=== PATIENT | female | born 1995 | race Caucasian/White ===

== ENCOUNTER → 2018-08-23 | Outpatient (CLI) | payer OTHER ==
[~2018-08-23] MED LIST: AZIT250 PO; CEPH500 PO; ESCI10 PO; IBUP400 PO; IBUP800 PO; NP THYROID30 MG PO; OXYACE5T PO; Verotin-Gr Cap1 EACH PO; Vitamin B-1250 MCG PO; [UNRECOGNIZED DRUG - OTHER]
== END | disposition home or self-care (01) ==
LOC: LAB SHORT 17:21 → LAB 17:21
PROVIDERS: Obstetrics & Gynecology
DX: Z01.419 Encounter for gynecological examination (general) (routine) without abnormal findings (principal)
CPT/HCPCS: G0123

== ENCOUNTER 2018-08-29 17:50 | Emergency (ER) | payer OTHER ==
[~2018-08-29] VITALS: Ht 167.6 cm; Wt 57.6 kg
[~2018-08-29 17:50] MED LIST changes: -NP THYROID30 MG PO
[2018-08-29] MEDS ORDERED: NP THYROID30 MG PO (18:07)
[2018-08-29 19:00] LABS: Calcium, Ionized (POC) 1.16 mmol/L (1.10-1.46); Chloride (POC) 105 mmol/L (98-108); Creatinine (POC) 0.7 mg/dL (0.6-1.0); Glucose (ISTAT POC) 98 mg/dL (70-99); Hemoglobin (POC) 13.9 g/dL (12.0-16.0); Potassium (POC) 3.5 mmol/L (3.5-5.5); Sodium (POC) 144 mmol/L (135-148); Total CO2 (POC) 23 mmol/L (21-32)
== END 2018-08-29 19:08 | disposition home or self-care (01) ==
LOC: ER 17:50
PROVIDERS: Physician Assistant
DX: F41.9 Anxiety disorder, unspecified (principal); Z88.0 Allergy status to penicillin; Z79.899 Other long term (current) drug therapy; E03.9 Hypothyroidism, unspecified; Z87.891 Personal history of nicotine dependence
CPT/HCPCS: 80047; 85014; 99283

== ENCOUNTER 2019-01-31 16:16 | Emergency (ER) | payer OTHER ==
[~2019-01-31] VITALS: Ht 167.6 cm; Wt 61.2 kg
[~2019-01-31 16:16] MED LIST changes: +NP THYROID30 MG PO
[2019-01-31 17:06] LABS: Source, Urine Clean Catch
[2019-01-31 17:08] LABS: BASOPHILS ABSOLUTE AUTO 0.02 K/mm3 (0.00-0.23); BASOPHILS PERCENT AUTO 0 % (0-2); EOSINOPHILS ABSOLUTE AUTO 0.09 K/mm3 (0.00-0.68); EOSINOPHILS PERCENT AUTO 2 % (0-6); Hematocrit 43.1 % (33.0-51.0); Hemoglobin 14.6 g/dL (11.5-16.0); IMMATURE GRAN ABSOLUTE AUTO 0.02 K/mm3 (0.00-0.10); IMMATURE GRAN PERCENT AUTO 0 % (0-1); LYMPHOCYTES ABSOLUTE AUTO 2.09 K/mm3 (0.84-5.20); LYMPHOCYTES PERCENT AUTO 37 % (21-46); MONOCYTES ABSOLUTE AUTO 0.34 K/mm3 (0.16-1.47); MONOCYTES PERCENT AUTO 6 % (4-13); Mean Corpuscular HGB 29.7 pg (26.0-34.0); Mean Corpuscular HGB Conc 33.9 g/dL (31.5-36.5); Mean Corpuscular Volume 88 fL (80-100); Mean Platelet Volume 10.9 fL (9.1-12.4); NEUTROPHILS ABSOLUTE AUTO 3.13 K/mm3 (1.96-9.15); NEUTROPHILS PERCENT AUTO 55 % (41-73); Platelet Count 205 K/mm3 (150-400); RDW Coefficient Variation 11.4 % (11.7-14.2); RDW Standard Deviation 36.9 fL (35.1-46.3); Red Blood Cell Count 4.92 M/mm3 (3.80-5.20); White Blood Cell Count 5.69 K/mm3 (4.00-11.30)
[2019-01-31 17:11] LABS: Bilirubin, Urine Neg (Neg); Blood, Urine Neg (Neg); Glucose Qualitative, Urine Neg (Neg); Ketones, Urine Neg (Neg); Leukocyte Esterase, Urine Neg (Neg); Nitrite, Urine Neg (Neg); Protein, Urine Neg (Neg); Urobilinogen, Urine NORM (Normal)
[2019-01-31 17:19] LABS: Appearance, Urine Clear (Clear); Color, Urine Yellow (P-Yellow)
[2019-01-31 17:28] LABS: Alanine Aminotransfer (ALT/SGP 27 U/L (12-78); Albumin, Blood 4.3 g/dL (3.4-5.0); Albumin/Globulin Ratio 1.2 (0.8-1.8); Alk Phos 81 U/L (50-136); Anion Gap 4 mmol/L (6-16); Aspartate Aminotrans (AST/SGOT 12 U/L (12-37); Bilirubin, Total 0.4 mg/dL (0.1-1.0); Blood Urea Nitrogen 13 mg/dL (8-24); Bun/Creatinine Ratio 19.1 (12.0-20.0); CO2, Blood 27 mmol/L (21-32); Calcium, Blood 8.9 mg/dL (8.5-10.1); Chloride, Blood 111 mmol/L (98-108); Creatinine, Blood 0.68 mg/dL (0.40-1.00); Globulin, Blood 3.5 g/dL (2.2-4.0); Glomerular Filtration Rate >60 (60-); Glucose, Blood 113 mg/dL (70-99); Potassium, Blood 3.6 mmol/L (3.5-5.5); Sodium, Blood 142 mmol/L (136-145); Total Protein, Blood 7.8 g/dL (6.4-8.2)
[2019-01-31] MEDS ORDERED: Motion Sickness25 M1 PO (18:21)
== END 2019-01-31 18:54 | disposition home or self-care (01) ==
LOC: ER 16:16
PROVIDERS: Physician Assistant
DX: R42 Dizziness and giddiness (principal); R00.2 Palpitations; E03.9 Hypothyroidism, unspecified; Z87.891 Personal history of nicotine dependence; Z79.899 Other long term (current) drug therapy; Z88.0 Allergy status to penicillin
CPT/HCPCS: 36415; 80053; 81003; 81025; 85025; 93005; 93010; 96361; 96374; 99284-25; J2405; J7030

== ENCOUNTER 2020-04-02 17:31 | Emergency (ER) | payer OTHER ==
[~2020-04-02] VITALS: Ht 167.6 cm; Wt 65.8 kg
[~2020-04-02 17:31] MED LIST changes: +Motion Sickness25 M1 PO
[2020-04-02] MEDS ORDERED: AMPDEX30CR (17:53)
[2020-04-02] MEDS ORDERED: VENL37.5 PO (17:54)
[2020-04-02] MEDS ORDERED: METO25ER PO (17:54)
[2020-04-02] MEDS ORDERED: CENTRUM SILVER1 EAC2 PO (17:55)
[2020-04-02] MEDS ORDERED: ALPR.5 PO (17:56)
[2020-04-02] MEDS ORDERED: CYCL10 PO (20:12)
== END 2020-04-02 20:44 | disposition home or self-care (01) ==
LOC: ER 17:31
DX: S16.1XXA Strain of muscle, fascia and tendon at neck level, initial encounter (principal); S29.012A Strain of muscle and tendon of back wall of thorax, initial encounter; S09.90XA Unspecified injury of head, initial encounter; E03.9 Hypothyroidism, unspecified; Z88.0 Allergy status to penicillin; Z79.899 Other long term (current) drug therapy; Z87.891 Personal history of nicotine dependence; V43.52XA Car driver injured in collision with other type car in traffic accident, initial encounter; Y92.410 Unspecified street and highway as the place of occurrence of the external cause
CPT/HCPCS: 70450; 72070; 72125; 96374-59; 99285-25; J1885; L0160

== ENCOUNTER 2021-01-25 23:57 | Emergency (ER) | payer OTHER ==
[~2021-01-25] VITALS: Ht 167.6 cm; Wt 60.3 kg
[~2021-01-25 23:57] MED LIST changes: +ALPR.5 PO; +AMPDEX30CR; +CENTRUM SILVER1 EAC2 PO; +CYCL10 PO; +FLUDROCORTISON0.1 MG PO; +LEVSOD25 PO; +METO25ER PO; +QUET25; +VENL37.5 PO
[2021-01-26] MEDS ORDERED: METO25ER PO (02:05)
[2021-01-26 03:37] LABS: Source, Urine Clean Catch
[2021-01-26 03:40] LABS: Bilirubin, Urine Neg (Neg); Blood, Urine Neg (Neg); Glucose Qualitative, Urine Neg (Neg); Ketones, Urine Neg (Neg); Leukocyte Esterase, Urine Neg (Neg); Nitrite, Urine Neg (Neg); Protein, Urine Neg (Neg); Specific Gravity, Urine 1.025 (1.003-1.022); Urobilinogen, Urine 1+ (Normal)
[2021-01-26 03:50] LABS: Appearance, Urine Clear (Clear); Color, Urine Yellow (P-Yellow)
[2021-01-26 04:27] LABS: Candida species (DNA Probe) Negative (NEGATIVE); G. vaginalis (DNA Probe) Negative (NEGATIVE); T. vaginalis (DNA Probe) Negative (NEGATIVE)
[2021-01-28 01:10] LABS: CHLAMYDIA TRACHOMATIS, NAA Negative (Negative)
== END 2021-01-26 04:40 | disposition home or self-care (01) ==
LOC: ER 23:57
PROVIDERS: Emergency Medicine
DX: N94.10 Unspecified dyspareunia (principal); N93.9 Abnormal uterine and vaginal bleeding, unspecified; E03.9 Hypothyroidism, unspecified; Z79.899 Other long term (current) drug therapy
CPT/HCPCS: 81003; 81025; 87480; 87491; 87510; 87591; 87660; 99283

== ENCOUNTER 2022-08-14 14:27 | Observation (INO) | payer OTHER ==
[~2022-08-14] VITALS: Ht 167.6 cm; Wt 62.0 kg
[~2022-08-14 14:27] MED LIST changes: -Budeprion Xl300 MG PO; -Bupropion HCl100 MG PO; -METO25 PO
[2022-08-14] MEDS ORDERED: Bupropion HCl100 MG PO (16:35)
[2022-08-14] MEDS ORDERED: METO25 PO (18:26)
[2022-08-14] MEDS ORDERED: Budeprion Xl300 MG PO (18:27)
[2022-08-14] MEDS ORDERED: ALPR.5 PO (18:29)
--- NOTE | 2022-08-14 20:00 | NUR ---
ADMIT NOTE PATIENT NEW ADMIT TO UNIT FROM ER FOR APPY. ALERT AND ORIENTED AND INDEPENDENT. REPORTS MODERATE ABD PAIN, MILD NAUSEA. MEDICATED FOR PAIN PER EMAR. TOLERATING CLEAR LIQUIDS UNTIL MIDNIGHT, VOIDING WELL. ADMISSION COMPLETE. AND SON PRESENT IN ROOM. PLAN FOR NPO AFTER MIDNIGHT WITH POSSIBLE OR TOMORROW 08/15/22. REPROT GIVEN TO EXCHANGE SPECIALIST RN.
--- NOTE | 2022-08-15 04:21 | NUR ---
SHIFT SUMMARY PATIENT NEW ADMIT FOR ACUTE APPY. AOX4, IND. IN ROOM. VOIDS EASILY, NPO SINCE 0000. MEDICATED AT TIME OF ADMIT WITH TORADOL FOR PAIN AND DENIES NEED FOR FURTHER PAIN MEDICATION. REST COMFORTABLY T/O NIGHT, IV INFUSING FLUIDS AND ABX. SCDS IN PLACE. VSS, CALL LIGHT IN REACH.
[2022-08-15 05:21] LABS: BASOPHILS ABSOLUTE AUTO 0.02 K/mm3 (0.00-0.23); BASOPHILS PERCENT AUTO 1 % (0-2); EOSINOPHILS ABSOLUTE AUTO 0.08 K/mm3 (0.00-0.68); EOSINOPHILS PERCENT AUTO 2 % (0-6); Hematocrit 35.6 % (33.0-51.0); Hemoglobin 12.4 g/dL (11.5-16.0); IMMATURE GRAN ABSOLUTE AUTO 0.01 K/mm3 (0.00-0.10); IMMATURE GRAN PERCENT AUTO 0 % (0-1); LYMPHOCYTES PERCENT AUTO 43 % (21-46); MONOCYTES ABSOLUTE AUTO 0.36 K/mm3 (0.16-1.47); MONOCYTES PERCENT AUTO 9 % (4-13); Mean Corpuscular HGB Conc 34.8 g/dL (31.5-36.5); Mean Corpuscular Volume 86 fL (80-100); Mean Platelet Volume 10.8 fL (9.1-12.4); NEUTROPHILS ABSOLUTE AUTO 1.91 K/mm3 (1.96-9.15); NEUTROPHILS PERCENT AUTO 46 % (41-73); Platelet Count 156 K/mm3 (150-400); RDW Coefficient Variation 11.9 % (11.7-14.2); RDW Standard Deviation 37.3 fL (35.1-46.3); Red Blood Cell Count 4.13 M/mm3 (3.80-5.20); White Blood Cell Count 4.18 K/mm3 (4.00-11.30)
[2022-08-15 05:41] LABS: Albumin, Blood 3.5 g/dL (3.4-5.0); Albumin/Globulin Ratio 1.2 (0.8-1.8); Bilirubin, Total 0.5 mg/dL (0.1-1.0); Bun/Creatinine Ratio 12.7 (12.0-20.0); Calcium, Blood 8.4 mg/dL (8.5-10.1); Creatinine, Blood 0.87 mg/dL (0.40-1.00); Globulin, Blood 2.9 g/dL (2.2-4.0); Potassium, Blood 3.5 mmol/L (3.5-5.5); Total Protein, Blood 6.4 g/dL (6.4-8.2)
--- NOTE | 2022-08-15 12:48 | NUR ---
PT TO PREOP AT APPROXIMATELY 1215
--- NOTE | 2022-08-15 14:46 | NUR ---
08/15/22 1446 Mary Bhatti PT ON SCHEDULED ANTIBIOTICS AND EMPTIED BLADDER PRIOR TO COMING TO OR
--- NOTE | 2022-08-15 16:23 | NUR ---
PT ARRIVED TO UNIT FROM PACU TRANSFERRED [facility] FROM [facility] TO BED. PT REPORTS FEELING ANXIOUS AND FEELS LIKE "HEARTBURN" IN CHEST/THROAT. REPORTS SHOULDERS FEEL ACHEY. BP STABLE BUT HR DIPPING INTO MID 40S. DR BURGOS INTO SEE PT. DISCUSSED. VO GIVEN FOR HOSPITALIST PRN FOR BRADYCARDIA. IV FLUIDS STARTED AND ABX INFUSING PER ORDERS. MEDICATED PER ORDERS FOR 7/10 ABD PAIN WITH TYLENOL. CALL LIGHT IN REACH.
--- NOTE | 2022-08-15 17:18 | NUR ---
SUMMARY POD 0 FOR LAP APPY. LAP INCISIONS CDI W/DERMABOND. PT GUY POST OP WITH HR IN 40S. HOSPITALIST CONSULT OBTAINED AND TELE PLACED PER ORDERS. TELE SINUS GUY AT 46 PER LY. ADMINISTERED TYLENOL PER ORDERS FOR ABDOMINAL PAIN. CALL LIGHT IN REACH. FAMILY AT BEDSIDE.
--- NOTE | 2022-08-16 02:16 | NUR ---
TELE CALLED AT 0211 TO NOTIFY OF SINUS BRADYCARDIA OF 42-43 FROM 0200 AND SUSTAINING. CHECKED ON PATIENT WHO IS SLEEPING AT THIS TIME AND RESP RATE 16, EVEN UNLABORED BREATHING, IN NO APPARENT DISTRESS. WILL CONTINUE TO MONITOR.
--- NOTE | 2022-08-16 04:53 | NUR ---
SHIFT SUMMARY PATIENT POD1 LAP APPY. EATING AND VOIDING WELL. DENIES N/V. PASSING FLATUS. PATIENT HAS HX OF POTS, IS TACHYCARDIC WHEN AMBULATING, HR DROPS INTO LOW 40S PER PILER. DR GUNDERSON NOTIFIED, ORDERS RECIEVED TO BOLUS A LITER OF NS. VITALS MONITORED AND BOLUS INFUSING. PATIENT IS DENYING CHEST PAIN, SOB, LUNG SOUNDS CLEAR. BP 95/53, HR 41 AT START OF BOLUS, REPEAT AFTER 500ML IS 105/67 HR 47. PATIENT IS SLIGHTLY ANXIOUS, HOWEVER ABLE TO DISTRACT AND REASSURE HER. WILL CONTINUE TO MONITOR PATIENT VITALS AND FINISH BOLUS. CALL LIGHT IS IN REACH.
--- NOTE | 2022-08-16 16:31 | NUR ---
DISCHARGE SUMMARY POD1 LAP APPY, A/OX4, VSS THOUGH PT WAS ON TELEMETRY TO MONITOR HER HR IT WAS A LITTLE LOW AT REST AND LOW 100-120'S WHILE AMBULATING, PERFORMED ORTHOSTATIC BP ON HER WHICH WAS NORMAL, PT REPORTING GOOD PAIN MANAGMENT, TOLERATING PO, ABLE TO AMBULATE INDEPENDENTLY, SURGICAL INCISIONS ARE FREE FROM DRAINAGE AND NO REDNESS NOTED X3, ABD SOFT THOUGH TENDER TO PALPATION, PT DENEIS SOB. DISCHARGE INSTRUCTIONS DISCUSSED WITH PT AND HER INCLUDING H OME CARE, MEDICATIONS INCULDING DISCUSSING HER BETA NASH WITH HER PCP PER SURGERY RECOMMENDATION AND NOT TAKING HER XANAX WITH HER NEW OXYCODONE SCRIPT ALSO PER SURGERY, FOLLOW UP APPOINTMENTS AND CONTACT INFORMATION TO SET THAT UP. REMOVED IV ACCESS AND NO OTHER DEVICES IN PLACE, PT ESCORTED OUT VIA WC TO PRIVATE AUTO TO GO HOME.
== END 2022-08-16 15:36 | disposition home or self-care (01) ==
LOC: ER 14:27 → SURS 14:28
PROVIDERS: ADMIT Surgery
PROC: 0DTJ4ZZ Resection of Appendix, Percutaneous Endoscopic Approach (ICD-10-PCS; principal; 2022-08-15 14:00)
DX: K35.80 Unspecified acute appendicitis (principal); R00.1 Bradycardia, unspecified; G90.A Postural orthostatic tachycardia syndrome [POTS]; F90.9 Attention-deficit hyperactivity disorder, unspecified type; F32.A Depression, unspecified; F41.9 Anxiety disorder, unspecified; E03.9 Hypothyroidism, unspecified; Z87.891 Personal history of nicotine dependence; Z88.0 Allergy status to penicillin; Z88.8 Allergy status to other drugs, medicaments and biological substances; Z79.899 Other long term (current) drug therapy
CPT/HCPCS: 36415; 80053; 84703; 85025; 93005; 93010; 96361; 96365; 96366; 96375; 96376; 99284-25; A9270; G0378; J0696; J1100; J1170; J1885; J2250; J2405; J2704; J2795; J3010; J7030; J7120

== ENCOUNTER → 2022-08-14 | Outpatient (CLI) | payer OTHER ==
[~2022-08-14] MED LIST changes: -AMPDEX30CR; +AMPDEX30CR PO; +Budeprion Xl300 MG PO; +Bupropion HCl100 MG PO; +METO25 PO
[2022-08-14 11:13] LABS: BASOPHILS ABSOLUTE AUTO 0.03 K/mm3 (0.00-0.23); BASOPHILS PERCENT AUTO 1 % (0-2); EOSINOPHILS ABSOLUTE AUTO 0.09 K/mm3 (0.00-0.68); EOSINOPHILS PERCENT AUTO 2 % (0-6); Hematocrit 41.3 % (33.0-51.0); Hemoglobin 14.3 g/dL (11.5-16.0); IMMATURE GRAN ABSOLUTE AUTO 0.01 K/mm3 (0.00-0.10); IMMATURE GRAN PERCENT AUTO 0 % (0-1); LYMPHOCYTES ABSOLUTE AUTO 1.89 K/mm3 (0.84-5.20); LYMPHOCYTES PERCENT AUTO 33 % (21-46); MONOCYTES ABSOLUTE AUTO 0.39 K/mm3 (0.16-1.47); MONOCYTES PERCENT AUTO 7 % (4-13); Mean Corpuscular HGB 29.9 pg (26.0-34.0); Mean Corpuscular HGB Conc 34.6 g/dL (31.5-36.5); Mean Corpuscular Volume 86 fL (80-100); Mean Platelet Volume 10.8 fL (9.1-12.4); NEUTROPHILS ABSOLUTE AUTO 3.38 K/mm3 (1.96-9.15); NEUTROPHILS PERCENT AUTO 58 % (41-73); Platelet Count 226 K/mm3 (150-400); RDW Standard Deviation 37.9 fL (35.1-46.3); Red Blood Cell Count 4.78 M/mm3 (3.80-5.20); White Blood Cell Count 5.79 K/mm3 (4.00-11.30)
[2022-08-14 11:24] LABS: Albumin, Blood 4.5 g/dL (3.4-5.0); Albumin/Globulin Ratio 1.2 (0.8-1.8); Bilirubin, Total 0.5 mg/dL (0.1-1.0); Bun/Creatinine Ratio 15.7 (12.0-20.0); Calcium, Blood 9.4 mg/dL (8.5-10.1); Creatinine, Blood 0.83 mg/dL (0.40-1.00); Globulin, Blood 3.8 g/dL (2.2-4.0); Potassium, Blood 3.7 mmol/L (3.5-5.5); Total Protein, Blood 8.3 g/dL (6.4-8.2)
== END | disposition home or self-care (01) ==
LOC: LAB 11:10 → LAB SHORT 11:10
PROVIDERS: Physician Assistant
DX: R10.31 Right lower quadrant pain (principal)
CPT/HCPCS: 80053; 85025

== ENCOUNTER 2024-11-18 18:53 | Emergency (ER) | payer OTHER ==
[~2024-11-18] VITALS: Ht 167.6 cm; Wt 67.1 kg
[~2024-11-18 18:53] MED LIST changes: +Budeprion Xl300 MG PO; +Bupropion HCl100 MG PO; +METO25 PO
[2024-11-18 19:33] LABS: BASOPHILS ABSOLUTE AUTO 0.03 K/mm3 (0.00-0.23); BASOPHILS PERCENT AUTO 0 % (0-2); EOSINOPHILS ABSOLUTE AUTO 0.13 K/mm3 (0.00-0.68); EOSINOPHILS PERCENT AUTO 2 % (0-6); Hematocrit 38.7 % (33.0-51.0); Hemoglobin 13.6 g/dL (11.5-16.0); IMMATURE GRAN ABSOLUTE AUTO 0.02 K/mm3 (0.00-0.10); IMMATURE GRAN PERCENT AUTO 0 % (0-1); LYMPHOCYTES ABSOLUTE AUTO 2.73 K/mm3 (0.84-5.20); LYMPHOCYTES PERCENT AUTO 35 % (21-46); MONOCYTES ABSOLUTE AUTO 0.45 K/mm3 (0.16-1.47); MONOCYTES PERCENT AUTO 6 % (4-13); Mean Corpuscular HGB 30.2 pg (26.0-34.0); Mean Corpuscular HGB Conc 35.1 g/dL (31.5-36.5); Mean Corpuscular Volume 86 fL (80-100); Mean Platelet Volume 10.4 fL (9.1-12.4); NEUTROPHILS ABSOLUTE AUTO 4.45 K/mm3 (1.96-9.15); NEUTROPHILS PERCENT AUTO 57 % (41-73); Platelet Count 201 K/mm3 (150-400); RDW Coefficient Variation 11.2 % (11.7-14.2); RDW Standard Deviation 34.9 fL (35.1-46.3); White Blood Cell Count 7.81 K/mm3 (4.00-11.30)
[2024-11-18 19:53] LABS: Beta HCG, Quantitative, Serum <1 mIU/mL (0-3)
[2024-11-18 20:08] LABS: Alanine Aminotransfer (ALT/SGP 70 U/L (12-78); Albumin, Blood 4.7 g/dL (3.4-5.0); Albumin/Globulin Ratio 1.9 (0.8-1.8); Alk Phos 69 U/L (50-136); Anion Gap 9 mmol/L (3-11); Aspartate Aminotrans (AST/SGOT 37 U/L (12-37); Bilirubin, Total 0.4 mg/dL (0.1-1.0); Blood Urea Nitrogen 19 mg/dL (8-24); Bun/Creatinine Ratio 24.4 (12.0-20.0); CO2, Blood 26 mmol/L (21-32); Calcium, Blood 9.2 mg/dL (8.5-10.1); Chloride, Blood 106 mmol/L (98-108); Creatinine, Blood 0.78 mg/dL (0.40-1.00); Globulin, Blood 2.5 g/dL (2.2-4.0); Glomerular Filtration Rate 107 (60-); Glucose, Blood 98 mg/dL (70-99); Potassium, Blood 3.5 mmol/L (3.5-5.5); Sodium, Blood 137 mmol/L (136-145); Total Protein, Blood 7.2 g/dL (6.4-8.2)
[2024-11-18 20:52] LABS: Source, Urine Clean Catch
[2024-11-18 21:01] LABS: Appearance, Urine Clear (Clear); Bilirubin, Urine Neg (Neg); Blood, Urine Neg (Neg); Glucose Qualitative, Urine Neg (Neg); Ketones, Urine Neg (Neg); Leukocyte Esterase, Urine Neg (Neg); Nitrite, Urine Neg (Neg); Protein, Urine Neg (Neg); Specific Gravity, Urine 1.005 (1.003-1.022); Urobilinogen, Urine NORM (Normal)
[2024-11-18 21:13] LABS: Color, Urine Pale Yellow (P-Yellow)
[2024-11-18 23:15] VITALS: BP 113/65
== END 2024-11-18 23:28 | disposition home or self-care (01) ==
LOC: ER 18:53
PROVIDERS: Student in an Organized Health Care Education/Training Program
DX: R00.2 Palpitations (principal); Z88.0 Allergy status to penicillin; Z88.1 Allergy status to other antibiotic agents; Z79.890 Hormone replacement therapy; Z79.899 Other long term (current) drug therapy; Z87.891 Personal history of nicotine dependence
CPT/HCPCS: 71046; 80053; 81003; 84484; 84702; 85025; 93005; 93010; 99285-25